=== PATIENT | female | born 1990 | race Hispanic/Latino ===

== ENCOUNTER 2018-08-31 16:30 | Day surgery (SDC) | payer BC ==
[2018-08-31 17:24] VITALS: BMI 38.8
--- NOTE | 2018-08-31 20:29 | ER ---
DATE OF SERVICE: 08/31/2018 PRIMARY OB: Dr. Kishore Salazar. CHIEF COMPLAINT: Elevated blood pressures. HISTORY OF PRESENT ILLNESS: The patient is a 28-year-old G5, P3 female with an intrauterine at 34 weeks and 2 days, who was sent from clinic with concerns of elevated blood pressures. The patient denies headache, abdominal pain, or swelling. She does report some shortness of breath that she attributes to the that she has been having off and on. The patient denies any previous history of hypertension with pregnancies or outside of the pregnancies. She denies any exhm-czc-wgtanih medication use. She does report she has been having an upper respiratory infection in last few days with cough and head congestion. The patient denies fever, headache, chest pain, nausea, vomiting, diarrhea, or constipation. She denies any new rashes, hip problems, knee problems, or muscle weakness. She denies vaginal bleeding, leakage of fluid, or urinary urgency. PAST MEDICAL HISTORY: Negative. PAST SURGICAL HISTORY: She has had a cholecystectomy and prior x3. SOCIAL HISTORY: Denies drug, alcohol, or tobacco use. ALLERGIES: NO KNOWN DRUG ALLERGIES. MEDICATIONS: vitamins. OB LABS: Blood type is 0 positive. Antibody screen is negative. Hepatitis B surface antigen is negative. RPR is nonreactive. She is rubella immune. 1 hour Glucola was 123. REVIEW OF SYSTEMS: Per HPI. PHYSICAL EXAMINATION: VITAL SIGNS: Blood pressure had been in the 1-teens, predominantly 1-teens over 60s to 70s. She did have 1 isolated blood pressure of 123/90. Heart rate in the 90s to low 100. Satting 98%, 99%, 100% on room air. GENERAL: She appears to in no acute distress. She is alert and oriented, cooperative, and pleasant to interact with. HEAD: Normocephalic, atraumatic. LUNGS: Clear to auscultation bilaterally. HEART: Regular rate and rhythm. ABDOMEN: Soft, gravid, nontender. EXTREMITIES: Nontender, nonedematous. : Exam has been deferred. heart tracing demonstrates a baby with a baseline in the 140s with moderate long-term variability, positive 15 x 15 accelerations, and no significant contractions seen on the tocometer. ASSESSMENT AND PLAN: The patient is a 28-year-old multiparous female with an intrauterine at 34 weeks, here for evaluation of elevated blood pressures, seen in clinic today. Those blood pressures have not been duplicated here over the course of 1 hour of monitoring. The patient has been given reassurance. She does have followup with her primary OB provider, which we have encouraged that she keep. Job ID: [id number]
== END 2018-08-31 18:00 | disposition home or self-care (01) ==
LOC: L&D/OP 16:30
PROVIDERS: ATTEND Obstetrics & Gynecology
DX: O16.3 Unspecified maternal hypertension, third trimester (principal); Z3A.34 34 weeks gestation of pregnancy; Z79.899 Other long term (current) drug therapy
CPT/HCPCS: 99282

== ENCOUNTER 2018-10-10 09:34 | Inpatient (IN) | payer BC ==
[2018-10-10] MEDS ORDERED: Ondansetron PF 4 MG/2 ML Vial IVP PRN ×3 (10:45→15:07)
[2018-10-10] MEDS ORDERED: Bicitra 30 ML UDCUP PO SCH (10:45)
[2018-10-10] MEDS ORDERED: CEFAZOLIN/Water 2 GM/20 ML SYRINGE SLOW IVP SCH (10:45)
[2018-10-10] MEDS ORDERED: Promethazine HCl 25 MG/ML VIAL IM PRN ×2 (10:45→13:30)
--- NOTE | 2018-10-10 10:50 | PDOC.LDHP ---
Labor and Delivery H&P Chief complaint: scheduled section HPI: Pt is a 28yo @ 39.3 here for RCS. Current gestational age (weeks): 39 Due date: 10/14/18 Dating criteria: second trimester ultrasound Grav: 5 Para: 3 OB History Details: CS x 3 Current complications: none Abnormal US findings: No Past Medical History: none Current medications: pre-nam vitamins Previous surgical history: low tranverse CS (x3) Allergies/Adverse Reactions: Allergies Allergy/AdvReac Type Severity Reaction Status Date / Time No Known Allergies Allergy Unverified 04/23/14 10:57 Social history: none - Physical Exam Vital signs reviewed and normal: yes General: resting Heart: RRR Lungs: CTAB Abdomen: gravid Extremeties: no edema FHT: category 1 - OB Labs Blood type: O RH: positive Antibody Screen: negative HIV: negative RPR: negative HEPSAg: negative 1 hour GCT: negative GBS: negative Rubella: immune - Assessment L&D Assessment: scheduled repeat section - Plan Plan: admit to L&D, to OR for section, informed consent obtained, anesthesia consult for pain management -: To OR for RCS.
[2018-10-10] MEDS: Lactated Ringer's 1,000 ML IV SCH ×2 (10:56→11:27)
[2018-10-10] MEDS ORDERED: CEFAZOLIN 2 GM/50 ML-DEXTROSE 2 GM in Premix Bag 1 BAG IVPB SCH (11:00)
[2018-10-10 11:28] LABS: Hemoglobin 11.3 g/dL (12.0-16.0); Mean Corpuscular Hemoglobin 23.7 pg (27.0-31.0); Mean Corpuscular Volume 71.8 fL (78.0-98.0); Mean Platelet Volume 11.1 fL (7.4-10.4); Platelet Count 196 thou/uL (130-400); RBC Distribution Width 18.2 % (11.5-14.5); Red Blood Cell (RBC) Count 4.77 mill/uL (4.20-5.40); White Blood Cell (WBC) Count 6.8 thou/uL (4.8-10.8)
[2018-10-10 11:37] VITALS: BMI 40.2
[2018-10-10] MEDS ORDERED: Dexamethasone 4 mg/ml Vial ONE (11:41)
[2018-10-10] MEDS ORDERED: Oxytocin 10 UNITS/ML VIAL ONE (11:41)
[2018-10-10] MEDS ORDERED: Ondansetron PF 4 MG/2 ML Vial ONE (11:41)
[2018-10-10] MEDS ORDERED: Fentanyl 100 MCG/2 ML VIAL ONE (11:41)
[2018-10-10] MEDS ORDERED: Morphine PF 1 MG/ML SYR ONE (11:41)
[2018-10-10] MEDS ORDERED: ePHEDrine/0.9% NaCl/PF SYRINGE 50 mg/10 ml ONE ×2 (11:41→14:58)
[2018-10-10 11:55] LABS: HBSAg Index 0.17 S/CO (0-0.99); Hep B Surf Ag Non-Reactive S/CO (NonReactive)
--- NOTE | 2018-10-10 13:18 | PDOC.OPDEL ---
OB Operative/Delivery Note Delivery Dr/Surgeon: Martin Assist: Quynh Lauren Pre-Delivery Diagnosis: scheduled section Procedure/Post Delivery Dx: repeat low transverse CS Weeks gestation: 39 Anesthesia: spinal - Findings A Sex: female Weight: 7 lb 3 oz - 1 min: 9 - 5 min: 9 - Additional Findings/Plan Placenta delivered: manual removal findings: low transverse hysterotomy without extension, normal uterus, normal tubes, normal ovaries, other (dense adhesions of anterior abd wall to uterine serosa, omentum to uterus) Estimated blood loss: 800ml Compilations/Other Findings: dense adhesion
[2018-10-10] MEDS ORDERED: Naloxone HCl 0.4 mg/ml Vial IVP PRN ×2 (13:30)
[2018-10-10] MEDS ORDERED: Ondansetron HCl/PF 4 MG/2 ML Vial IVP PRN (13:30)
[2018-10-10] MEDS ORDERED: Ketorolac Tromethamine 30 MG/ML VIAL IVP SCH (13:30)
[2018-10-10] MEDS ORDERED: Eucerin (Mineral Oil/Petrolatum,White) 30 gm Jar TOP PRN (13:30)
[2018-10-10] MEDS ORDERED: Communication Order-Pharmacy FS SCH (13:30)
[2018-10-10] MEDS ORDERED: Promethazine HCl 25 MG SUPP PR PRN (13:30)
[2018-10-10] MEDS ORDERED: Naloxone HCl 0.4 mg/ml Vial IV PRN (13:30)
[2018-10-10] MEDS ORDERED: HYDROmorphone 2 MG/ML VIAL SLOW IVP PRN (13:30)
[2018-10-10] MEDS ORDERED: L&D-Morphine 4 MG/ML VIAL SLOW IVP PRN (13:30)
[2018-10-10] MEDS ORDERED: diphenhydrAMINE 50 MG/ML VIAL IVP PRN (13:30)
[2018-10-10] MEDS ORDERED: Ketorolac Tromethamine 30 MG/ML VIAL ONE (14:36)
[2018-10-10] MEDS: Ketorolac Tromethamine 30 MG/ML VIAL IVP SCH ×2 (14:50→19:53)
[2018-10-10] MEDS ORDERED: PHENYLEPHRINE-NS 100 MCG/ML 10 ML SYRINGE ONE (14:58)
[2018-10-10] MEDS ORDERED: diphenhydrAMINE 25 MG CAP PO PRN (15:07)
[2018-10-10] MEDS ORDERED: Bisacodyl 10 MG SUPP PR PRN (15:07)
[2018-10-10] MEDS ORDERED: NS / Oxytocin 40 units/1000ml 1,000 ML IV SCH (15:07)
[2018-10-10] MEDS ORDERED: Simethicone Chewable 80 MG TAB PO PRN (15:07)
[2018-10-10] MEDS ORDERED: Adacel (T-DAP) 0.5 ML SYRINGE IM ONE (15:07)
--- NOTE | 2018-10-10 19:59 | OP ---
DATE OF PROCEDURE: 10/10/2018 PREOPERATIVE DIAGNOSES: 1. A 28-year-old, G5, P3-0-1-3 at 39 weeks. 2. Previous section x3. POSTOPERATIVE DIAGNOSIS: Status post repeat section. PROCEDURES PERFORMED: Repeat low-transverse section and lysis of adhesions. ASSISTANTS: KO De La Vega and Jorge Lauren MD COMPLICATIONS: None. ESTIMATED BLOOD LOSS: 800 mL. QBL: 440 mL. FINDINGS: 1. Vigorous female infant, Apgars 9 and 9, weight 7 pounds 3 ounces, to [facility]. 2. Dense adhesions of the uterine serosa to the anterior abdominal wall, adhesions of the omentum to the uterine serosa and anterior abdominal wall. 3. Low-transverse hysterotomy without extension. 4. Surgical sites hemostatic after closure and application of FloSeal. DESCRIPTION OF PROCEDURE: The patient was taken back to the OR with IV fluids running. When she was in the OR, spinal anesthesia was obtained and the patient was placed in dorsal supine position with a left lateral tilt. Albright catheter was placed using sterile technique, and the abdomen was prepped and draped in normal fashion for section. Anesthesia was tested and found to be adequate. A Pfannenstiel skin incision was made with a scalpel. Skin incision was carried down through the subcutaneous tissues to the fascia. Once the fascia was reached, it was incised in the midline and extended superolaterally using curved Robert scissors. A combination of blunt dissection, sharp dissection with scissors, and dissection with Bovie cauterization was used to dissect the fascia off the rectus abdominis muscles anteriorly as well as inferiorly toward the pubic symphysis to allow adequate space for the delivery of the . In the midline, the rectus fascia was noted to be adherent to the uterine serosa at the level of the hysterotomy. This dense adhesion was taken down carefully using sharp and blunt dissection as well as limited Bovie cauterization. After the fascia was dissected off the anterior abdominal wall, the bladder flap was bluntly swept away from the planned hysterotomy site. Omental adhesions that were obstructing the planned hysterotomy site were taken down using Bovie cauterization as well. Once adequate space and visualization were created for delivery of the , a low transverse hysterotomy was made with a scalpel. The uterine hysterotomy was entered bluntly and stretched laterally using Quach maneuver. An amniotomy was performed with clear fluid noted. The was delivered without difficulty. The nose and mouth were suctioned. The cord was doubly clamped and cut. The was handed off to special care nurses in attendance. Cord blood was collected. The placenta was delivered. The uterus was able to be exteriorized, it was massaged to firm, and cleared of clot and debris. The fallopian tubes and adnexa appeared normal. The hysterotomy was then closed with Monocryl suture in a running locked fashion. After the hysterotomy was closed, the uterine serosa was oversewn with chromic suture just to the left of the midline, where the fascia had to be dissected away from the uterine serosa. Once hemostasis and confucianism of anatomy were noted of the uterine hysterotomy and area of dissection where the adhesive disease, layer of FloSeal was applied. Pressure was applied over the FloSeal with a moist sponge and was held for 3 minutes. After this was completed, the lap count was correct. Hemostasis was noted from the uterus, and the uterus was returned to the abdominal cavity. With the uterus back in the abdomen, it was inspected again with no bleeding noted. The rectus muscles and fascia were inspected, and no areas of bleeding were noted. The rectus fascia was reapproximated with PDS from [id number] and tied separately in the midline. The subcutaneous tissue was irrigated and dried. Any small areas of bleeding were controlled with Bovie cauterization. Plain gut suture was used in a running fashion to reapproximate the subcutaneous tissue. Subcuticular layer was reapproximated with 4-0 Monocryl and dressed with Dermabond dressing. The uterus was noted to be firm at the end of the case. The patient tolerated the procedure well. Job ID: [id number]
[2018-10-11] MEDS: Ketorolac Tromethamine 30 MG/ML VIAL IVP SCH ×2 (05:04→08:07)
[2018-10-11] MEDS: Docusate Calcium (SURFAK) 240 MG CAP PO SCH ×3 (05:05→20:51)
[2018-10-11 05:54] LABS: Hemoglobin 9.2 g/dL (12.0-16.0); Mean Corpuscular Hemoglobin 24.1 pg (27.0-31.0); Mean Corpuscular Volume 72.8 fL (78.0-98.0); Mean Platelet Volume 10.1 fL (7.4-10.4); Platelet Count 160 thou/uL (130-400); RBC Distribution Width 18.2 % (11.5-14.5); Red Blood Cell (RBC) Count 3.82 mill/uL (4.20-5.40); White Blood Cell (WBC) Count 9.7 thou/uL (4.8-10.8)
[2018-10-11] MEDS: HYDROcodone/Acetaminophen 5/325 mg Tablet PO PRN ×3 (08:31→20:52)
[2018-10-11] MEDS: Prenatal Vitamin 1 TAB PO SCH (08:31)
--- NOTE | 2018-10-11 11:41 | PDOC.PP ---
Post Progress Note Post Day #: 1 Subjective: no concerns, min pain PO intake tolerated: yes Flatus: yes Ambulation: yes Vital Signs (12 hours) Temp Pulse Resp BP Pulse Ox 10/11/18 08:16 98.3 F 69 20 93/55 L 97 10/11/18 04:00 98.2 F 79 17 97/54 L Weight Weight 206 lb - Physical Examination General: NAD Respiratory: non-labored breathing Abdominal: no distention Fundus firm & at: below umb Extremities: negative homans (B) Skin: CS incision dry & intact Neurological: no gross focal deficits Psychiatric: A&Ox3, normal affect Result Diagrams: 10/11/18 05:36 Additional Labs: Post Labs Blood Type O POSITIVE 10/10/18 11:02 Hep Bs Antigen Non-Reactive S/CO (NonReactive) 10/10/18 11:02 (1) delivery delivered Code(s): O82 - ENCOUNTER FOR DELIVERY WITHOUT INDICATION Status: Acute - Assessment/Plan POD1 sp RCS #4 w dense adhesions noted. Doing very well, min pain. Is considering DC tomorrow.
[2018-10-11] MEDS: Ibuprofen 800 MG TAB PO SCH ×2 (13:21→20:51)
[2018-10-11] MEDS ORDERED: Ibuprofen 800 MG TAB PO SCH (22:00)
[2018-10-12] MEDS: HYDROcodone/Acetaminophen 5/325 mg Tablet PO PRN ×4 (03:53→16:22)
[2018-10-12] MEDS: Ibuprofen 800 MG TAB PO SCH ×2 (06:20→14:49)
[2018-10-12] MEDS: Docusate Calcium (SURFAK) 240 MG CAP PO SCH (08:04)
[2018-10-12] MEDS: Prenatal Vitamin 1 TAB PO SCH (08:04)
--- NOTE | 2018-10-12 08:33 | PDOC.PP ---
Post Progress Note Post Day #: 2 Subjective: min pain, doing well, request DC home today PO intake tolerated: yes Flatus: yes Ambulation: yes Vital Signs (12 hours) Temp Pulse Resp BP Pulse Ox 10/12/18 08:19 97.7 F 71 20 101/55 L 98 10/12/18 00:00 97.9 F 78 20 91/51 L 10/11/18 20:45 97.9 F 72 16 95/53 L 98 Weight Weight 206 lb - Physical Examination General: NAD Respiratory: non-labored breathing Abdominal: no distention Fundus firm & at: below umb Extremities: negative homans (B) Skin: CS incision dry & intact, no rash Psychiatric: A&Ox3, normal affect Result Diagrams: 10/11/18 05:36 Additional Labs: Post Labs Blood Type O POSITIVE 10/10/18 11:02 Hep Bs Antigen Non-Reactive S/CO (NonReactive) 10/10/18 11:02 (1) delivery delivered Code(s): O82 - ENCOUNTER FOR DELIVERY WITHOUT INDICATION Status: Acute - Assessment/Plan POD2, asx anemia, no concerns, request DC.
[2018-10-12 11:49] VITALS: BP 101/63; TEMP 97.6
== END 2018-10-12 16:25 | disposition home or self-care (01) | DRG 788 ==
LOC: L&D 10:23 → 3SW 15:29
PROVIDERS: ADMIT Obstetrics & Gynecology; ATTEND Obstetrics & Gynecology
PROC: 10D00Z1 Extraction of Products of Conception, Low, Open Approach (ICD-10-PCS; principal; 2018-10-10)
PROC: 0DNU0ZZ Release Omentum, Open Approach (ICD-10-PCS; 2018-10-10)
DX: O34.211 Maternal care for low transverse scar from previous cesarean delivery (principal); O99.89 Other specified diseases and conditions complicating pregnancy, childbirth and the puerperium; N73.6 Female pelvic peritoneal adhesions (postinfective); Z3A.39 39 weeks gestation of pregnancy; Z37.0 Single live birth
CPT/HCPCS: 36415; 51702; 85027; 86850; 86900; 86901; 87340; J1100; J1885; J2274; J2405; J2590; J3010